=== PATIENT | male | born 1940 | race Caucasian/White ===

== ENCOUNTER 2020-03-01 08:12 | Day surgery (SDC) | payer MEDICARE, SELFPAY ==
--- NOTE | 2020-03-01 | PATH_ITS ---
[facility] Accession Number: [id number] . 01 Material submitted: . PART A: colon - ASCENDING COLON POLYP X2 PART B: colon - 60 CM COLON POLYP PART C: colon - 20 CM COLON POLYP . 02 Diagnosis: A. Ascending Colon, Polyp x2, Biopsy: Tubular adenomas. . B. Colon, Polyp 60 cm, Biopsy: Tubular adenoma. . C. Colon, Polyp 20 cm, Biopsy: Tubular adenoma. [facility] 03/05/2020 1344 Local . 02 Electronically signed: . Elena Ferreira MD, Pathologist NPI- [id number] . 01 Gross description: . A. Specimen A is received in formalin, labeled ascending colon polyp and consists of three alvares-pink fragments of soft tissue, measuring 1.5 x 1.0 x 0.4 cm in aggregate. The specimen is entirely submitted in cassette A1. B. Specimen B is received in formalin, labeled 60 cm colon polyp and consists of three alvares fragments of soft tissue, measuring 0.6 x 0.5 x 0.2 cm in aggregate. The specimen is entirely submitted in cassette B1. C. Specimen C is received in formalin, labeled 20 cm colon polyp and consists of multiple alvares fragments of soft tissue, measuring 1.0 x 0.8 x 0.2 cm in aggregate. The specimen is entirely submitted in cassette C1. ([id number]) /[facility] 03/02/2020 1742 Local . 02 Pathologist provided ICD-10: D12.2, D12.6 . 02 CPT . 965696, 352115, [id number] Performed at: [address], [place], [place] [id number] MD Edgar Aguilar MD Phone: [phone] Performed at: 02 [facility] [address] [place] [id number] MD Elena Ferreira MD Phone: [phone]
[2020-03-01 08:33] VITALS: BP 121/63; PULSE 50; RESP 16; TEMP 36.1; O2SAT 100; BMI 22.8
[2020-03-01] MEDS: LACTATED RINGERS 1,000 ML 200 ML IV (08:33)
--- NOTE | 2020-03-01 09:12 | PM.HP.1 ---
History of Present Illness History of Present Illness Date Patient Seen: 03/01/20 Time Patient Seen: 09:12 Chief complaint: SD Narrative: Patient is gentleman who is here for a screening colonoscopy. He had polyps removed in the past and his last scope was 5 years ago. Patient History Medical History (Updated 03/01/20 @ 09:13 by Usman Cleary MD) Elevated cholesterol (Acute) Hypertension (Acute) Surgical History History of tonsillectomy Status post appendectomy Family & Social History Family History Grandmother Heart disease Grandfather Heart disease Social History: household members spouse Tobacco & Substance use: Smoking Status Never smoker alcohol intake current alcohol intake frequency a few times a week Substance Use Type does not use Meds Home Medications and Allergies Home Medications Medication Instructions Recorded Confirmed Type melatonin 3 mg PO HS #0 11/28/16 03/01/20 History cyanocobalamin (vitamin B-12) 1,000 mcg PO QDAY #0 12/23/16 03/01/20 History atorvastatin [Lipitor] 5 mg PO HS 03/01/20 03/01/20 History lisinopril 10 mg PO DAILY 03/01/20 03/01/20 History Allergies Allergy/AdvReac Type Severity Reaction Status Date / Time grass pollen [GRASS POLLEN] Allergy Mild WATERY Verified 03/01/20 08:26 EYES, ITCHY THROAT Review of Systems Review of Systems ROS: Yes All systems reviewed with the patient and are negative except as otherwise documented Exam Vital Signs (past 8 hours): - 03/01/20 08:33 Temperature 97 F L Pulse Rate 50 L Respiratory Rate 16 Blood Pressure 121/63 Pulse Oximetry 100 Oxygen Delivery Method Room Air Narrative Exam Narrative: Pleasant cooperative patient no apparent distress. Lungs are clear to auscultation. No rales or rhonchi. Heart regular rate and rhythm no murmur gallop. Abdomen is soft nontender without mass. No obvious hernias. Patient is alert and oriented x3. Assessment & Plan Assessment & Plan narrative: The patient for a screening colonoscopy. I have discussed the procedure with them. Risks of bleeding, perforation which would necessitate major operation, failure to find remove all lesions, the potential tattoo were all discussed. All questions were answered. They wished to proceed.
--- NOTE | 2020-03-01 09:14 | PM.PREOP ---
Pre-operative Note COVID-19 COVID-19 status: Negative Result date/Date tested (Pos, Neg/Pending): 02/27/20 Interval Note History & Physical reviewed/Exam performed by Physician: Yes Changes to H&P: No ASA Class (for procedural sedation): II
[2020-03-01] MEDS: fentaNYL 250 MCG/5 ML INJ IV (09:22)
[2020-03-01] MEDS: MIDAZOLAM 5 MG/5 ML VIAL IV (09:37)
--- NOTE | 2020-03-01 09:57 | PM.OP.ENDO ---
Operative Date/Time/Diagnoses Date of procedure: 03/01/20 Time of procedure: 09:57 Pre-op diagnosis: Personal history of polyps. Last exam 5 years ago. Post-op diagnosis: same (Multiple polyps. Enlarged prostate.) Procedure & Clinicians Study performed: Colonoscopy with hot snare polypectomy and cold biopsy Same procedure as scheduled: Yes Indications: Screening in a high risk patient. Surgeon: Usman Cleary Procedure Notes SCOAP/Timeout: Performed Procedure in detail: The patient was placed in the left lateral decubitus position and underwent IV sedation directed by the surgeon consisting of fentanyl and Versed. Digital exam was remarkable for a enlarged prostate without dominant mass. The scope was inserted and advanced through the rectum into the sigmoid, descending, transverse, and ascending colon. Patient was noted to have a very tortuous sigmoid with a occasional sigmoid diverticulosis.. The cecum was reached identified by the ileocecal valve and the appendiceal opening. The scope was gradually brought out. Polyps were found at the ascending colon, 60 cm and 20 cm from the anal verge. The 2 lesions in the ascending colon were larger flatter lesions in these were hot snared and removed. The lesions at 60 in 20 cm were smaller and these were removed with cold biopsy forceps.. The scope ultimately was retroflexed in the rectum. The appearance was normal. The scope was removed and the patient tolerated the procedure well. Very good prep. Scope withdrawal time: 8 minutes(16 total) Sedation minutes: 33 Findings: diverticulosis (Sigmoid), polyp (Multiple) and other findings (Enlarged prostate) Specimen(s): other (Polyps) Complications: none Post-procedure Recommendations: Colonscopy in 5 years Follow up: as needed Disposition: PACU
[2020-03-01 10:00] VITALS: BP 105/58; PULSE 57; RESP 13; TEMP 36.3; O2SAT 100
[2020-03-01 10:04] VITALS: BP 122/62; PULSE 58; RESP 15; O2SAT 100
[2020-03-01 10:25] VITALS: BP 108/61; PULSE 55; RESP 14; TEMP 36.5; O2SAT 98
== END 2020-03-01 10:31 | disposition home or self-care (01) ==
PROVIDERS: PCP Family Medicine; Referring Provider Family Medicine; Visit Provider Specialist
PROC: 0DJD8ZZ Inspection of Lower Intestinal Tract, Via Natural or Artificial Opening Endoscopic (ICD-10-PCS; CPT 45378; principal; 2020-03-01 09:15)
DX: Z12.11 Encounter for screening for malignant neoplasm of colon (principal); D12.2 Benign neoplasm of ascending colon; D12.6 Benign neoplasm of colon, unspecified; K57.30 Diverticulosis of large intestine without perforation or abscess without bleeding; N40.0 Benign prostatic hyperplasia without lower urinary tract symptoms; R00.1 Bradycardia, unspecified; E78.00 Pure hypercholesterolemia, unspecified; I10 Essential (primary) hypertension; Z86.010 Personal history of colon polyps
CPT/HCPCS: 45385; 45380; 99152; 99153; J2250; J3010